=== PATIENT | male | born 1945 | race Caucasian/White ===

== ENCOUNTER 2017-01-19 18:37 | Inpatient (IN) ==
[2017-01-19] MEDS ORDERED: ASPIRIN PO STA (18:53)
[2017-01-19 19:05] LABS: MANUAL DIFF NEEDED? NO
[2017-01-19 19:14] LABS: BASO% 0.7 % (0.0-0.8); EOS# 0.08 X1000 (0.0-0.7); EOS% 0.6 % (0.0-10.0); HEMATOCRIT 35.1 % (42.0-52.0); HEMOGLOBIN 11.6 g/dL (14.0-18.0); IMM GRAN# 0.08 X1000 (0.0-0.04); IMM GRAN% 0.6 % (0.0-0.5); LYMPH# 1.56 X1000 (1.2-3.4); LYMPH% 12.1 % (20.5-51.1); MCH 36.5 PG (27-31); MCV 110.4 FL (81-99); MONO# 1.87 X1000 (0.11-0.59); MONO% 14.5 % (1.7-9.3); MPV 9.5 FL (7.4-10.4); NEUT% 71.5 % (42.2-75.2); PLT 328 X1000 (130-400); RBC 3.18 XMIL (4.7-6.1)
[2017-01-19] MEDS ORDERED: DUONEB (A & A) INH ONE (19:16)
[2017-01-19] MEDS ORDERED: ALBUTEROL NEB INH ONE (19:16)
[2017-01-19 19:29] LABS: BE 1.4 mmoll (-3.0-3.0); BLOOD TYPE ARTERIAL; DRAW SITE L RADIAL; METHB 1.5 % (0.0-1.5); O2(CT) 14.3 mL/dL (15.0-23.0); PCO2(98.6) 50 mmHg (35-45); PO2(98.6) 64 mmHg (60-100); SAMPLE BLOOD; SAO2 95.1 % (95.0-100.0); THB 11.2 g/dL (11.5-17.4); pH(98.6) 7.35 (7.35-7.45)
[2017-01-19 19:32] LABS: INR 1.09 (0.86-1.15); PROTIME 14.4 Seconds (12.1-15.5)
[2017-01-19 19:32] LABS: ALLEN TEST YES; MODALITY CANNULA
[2017-01-19 19:33] LABS: PTT PL 34.8 Seconds (22.6-43.9)
[2017-01-19 19:52] LABS: ALBUMIN 3.9 g/dL (3.5-5.0); CALCIUM 9.7 mg/dL (8.8-10.2); MAGNESIUM 2.4 mg/dL (1.5-2.7); POTASSIUM 4.5 mmol/L (3.5-5.1); TOTAL BILIRUBIN 0.3 mg/dL (0.20-1.00); TOTAL PROTEIN 7.4 g/dL (6.3-8.3)
--- NOTE | 2017-01-19 19:54 | Diag Imaging Result Doc PS360 ---
EXAM: HEAD W/O CONTRAST HISTORY: ams TECHNIQUE: Dose reduction protocol COMPARISON: None. FINDINGS: No parenchymal hemorrhage. No epidural or subdural hematoma. No subarachnoid hemorrhage. No mass identified on this noncontrasted exam. No hydrocephalus. Prominent mucus in the right maxillary sinus with wall thickening. IMPRESSION: 1.No hemorrhage 2.Mild atrophy with mild chronic ischemic changes 3.Chronic right maxillary sinusitis Electronically signed by Tio Dasilva 01/19/2017 7:51 PM
--- NOTE | 2017-01-19 20:03 | Diag Imaging Result Doc PS360 ---
EXAM: CHEST-2 VIEWS HISTORY: CP TECHNIQUE: COMPARISON: None. FINDINGS: The lungs are well expanded. The heart is not enlarged. Small patchy infiltrates in the mid lungs. No consolidation. No pleural effusions. No free air beneath the diaphragm. IMPRESSION: Small patchy mid lung infiltrates. Electronically signed by Tio Dasilva 01/19/2017 8:00 PM
[2017-01-19] MEDS ORDERED: SOLU-MEDROL IV ONE (20:08)
[2017-01-19] MEDS ORDERED: ROCEPHIN 1 GM/NS 1 GM/50 ML IVPB IV ONE (20:09)
[2017-01-19 20:12] LABS: CK INDEX 0.3 (0.0-2.5); CK-MB 17.17 ng/mL (0.0-5.0)
--- NOTE | 2017-01-19 20:13 | EKG Report ---
Test Performed on : 01/19/2017 7:02:45 PM Test Reason : CHEST PAIN Blood Pressure : / mmHG Vent. Rate : 075 BPM Atrial Rate : 075 BPM P-R Int : 170 ms QRS Dur : 080 ms QT Int : 382 ms P-R-T Axes : 074 055 052 degrees QTc Int : 426 ms Normal sinus rhythm. Normal ECG When compared with ECG of 28-FEB-2014 12:23, No significant change was found Unconfirmed Result
--- NOTE | 2017-01-19 20:28 | PROVIDER DOCUMENTATION ---
This chart was entered by Hailey Scott Scribe, acting as scribe for Gerson Ang MD. HPI-Respiratory General - General Chief Complaint: Shortness of Breath Stated Complaint: 02 STAT WAS 83 Time Seen by Provider: 01/19/17 18:52 Source: patient, family Allergies/Adverse Reactions: Patient Allergies Allergy/AdvReac Type Severity Reaction Status Date / Time No Known Allergies Allergy Verified 01/19/17 18:49 Home Medications: Home Medication List Medication Instructions Recorded Confirmed Last Taken Type Amlodipine Besylate/Benazepril 1 each PO DAILY 02/28/14 01/19/17 03/03/14 05:15 History [Lotrel 10/20 mg Capsule] Metformin [Glucophage] 500 mg PO BID CC 02/28/14 01/19/17 03/02/14 22:00 History Venlafaxine E.r. [Effexor Xr] 150 mg PO DAILY 02/28/14 01/19/17 03/03/14 05:15 History - History of Present Illness-Resp Nature of Presenting Problem: 71 Y/O M presents to the ER with the complain of SOB and weakness. Pt states that Pt fell from his bed this morning and was unable to get up for several hours and his was unable to lift him up. Pt states that he had productive cough for X2 days and was very disoriented and confused this morning and calling her daughter with different names. PT has hx of COPD and HTN. Pt denies any other symptoms. Onset/Duration: reports: this morning Timing: reports: still present Associated Symptoms: reports: cough, shortness of breath, wheezing, other ( weakness) Review of Systems - Adult - REVIEW OF SYSTEMS - ADULT Constitutional: denies: chills, fever Eyes: reports: no symptoms reported Ears, Nose, Mouth & Throat: reports: no symptoms reported Cardiovascular: denies: chest pain, palpitations Respiratory: reports: cough, shortness of breath, wheezing Gastrointestinal: denies: abdominal pain, nausea, vomiting Genitourinary: reports: no symptoms reported Musculoskeletal: reports: no symptoms reported Integumentary: reports: no symptoms reported Neurological: reports: no symptoms reported Psychiatric: reports: no symptoms reported Endocrine: reports: no symptoms reported Hematologic/Lymphatic: reports: no symptoms reported Allergic/Immunologic: reports: no symptoms reported All Other Systems: Reviewed and Negative Past History - Adult - PAST MEDICAL HISTORY-ADULT Review of Records: reports: Old Records Reviewed, Nursing Assessment Review Cardiovascular: reports: HTN Respiratory: reports: COPD Endocrine/Immune: reports: Diabetes - IMMUNIZATION STATUS Childhood Immunizations: See Nurse Assessment Flu Vaccine: See Nurse Assessment - SOCIAL HISTORY Smoking: other (tobacco) Provider spent 3-5 mins advising pt. on dangers of tobacco.: Discussed manners to quit use, and f/u contacts for add'l counseling. Physical Exam-General - PHYSICAL EXAM-ADULT Initial Vital Signs Reviewed: Yes - CONSTITUTIONAL General Appearance: appears well, alert - EYES Eyes: PERRL/EOMI, pink conjunctivae - NECK Neck: non-tender, full range of motion, supple - RESPIRATORY Respiratory: wheezing. negative: rhonchi - CARDIOVASCULAR Cardiovascular: normal peripheral pulses, regular rate, rhythm - GASTROINTESTINAL (ABDOMEN) Abdominal Exam: non tender, soft - MUSCULOSKELETAL Back Exam: no CVA tenderness, no vertebral tenderness - SKIN Integumentary: normal color, normal turgor, warm/dry - PSYCHIATRIC Psych/Mental Status: normal mood/affect, oriented x 3 Progress - PLAN OF CARE/RESULTS Progress/Plan/Lab Results: Vital Signs - 8 hr 01/19/17 18:45 01/19/17 19:37 Temperature 98.2 F Pulse Rate 82 76 Respiratory Rate 24 20 Blood Pressure 131/55 O2 Sat by Pulse Oximetry 81 L 93 L Laboratory Results - last 24 hr 01/19/17 01/19/17 01/19/17 19:01 19:01 19:01 WBC RBC Hgb Hct MCV MCH MCHC RDW Std Deviation Plt Count MPV Immature Gran % (Auto) Neut % (Auto) Lymph % (Auto) [place] % (Auto) Eos % (Auto) Baso % (Auto) Immature Gran # (Auto) Neut # (Auto) Lymph # (Auto) [place] # (Auto) Eos # (Auto) Baso # (Auto) PT INR APTT (Factor Assay) D-Dimer Specimen Type Sample Site pH pCO2 pO2 HCO3 Base Excess Oxyhemoglobin ABG O2 Sat (Calculated) ABG O2 Saturation ABG Carboxyhemoglobin ABG Methemoglobin Mauro Test A-a O2 Difference Total Hemoglobin Lactate Liter Flow Blood Gas Modality FiO2 % Sodium 142 Potassium 4.5 Chloride 100 Carbon Dioxide 24 L Anion Gap 17 BUN 35 H Creatinine 2.1 H Estimated GFR/1.73 m2 31 BUN/Creatinine Ratio 17 Glucose 104 Calculated Osmolality 291 Calcium 9.7 Magnesium 2.4 Total Bilirubin 0.30 AST 89 H ALT 28 Alkaline Phosphatase 100 Creatine Kinase 6246 H Creatine Kinase Index 0.3 CK-MB (CK-2) 17.17 H Troponin T < 0.010 Oid-G-Endjunnutam Pept 1168 H Total Protein 7.4 Albumin 3.9 Globulin 4.0 Albumin/Globulin Ratio 1.0 01/19/17 01/19/17 01/19/17 19:01 19:01 19:10 WBC 12.93 H RBC 3.18 L Hgb 11.6 L Hct 35.1 L MCV 110.4 H MCH 36.5 H MCHC 33.0 RDW Std Deviation 16.2 H Plt Count 328 MPV 9.5 Immature Gran % (Auto) 0.6 H Neut % (Auto) 71.5 Lymph % (Auto) 12.1 L [place] % (Auto) 14.5 H Eos % (Auto) 0.6 Baso % (Auto) 0.7 Immature Gran # (Auto) 0.08 H Neut # (Auto) 9.25 H Lymph # (Auto) 1.56 [place] # (Auto) 1.87 H Eos # (Auto) 0.08 Baso # (Auto) 0.09 PT 14.4 INR 1.09 APTT (Factor Assay) 34.8 D-Dimer 1.37 H Specimen Type ARTERIAL Sample Site L RADIAL pH 7.35 pCO2 50 H pO2 64 HCO3 25.9 Base Excess 1.4 Oxyhemoglobin 90.8 L ABG O2 Sat (Calculated) 14.3 L ABG O2 Saturation 95.1 ABG Carboxyhemoglobin 3.10 H ABG Methemoglobin 1.5 Mauro Test YES A-a O2 Difference 130.0 Total Hemoglobin 11.2 L Lactate 0.70 Liter Flow 4.0 Blood Gas Modality CANNULA FiO2 % 36.0 Sodium Potassium Chloride Carbon Dioxide Anion Gap BUN Creatinine Estimated GFR/1.73 m2 BUN/Creatinine Ratio Glucose Calculated Osmolality Calcium Magnesium Total Bilirubin AST ALT Alkaline Phosphatase Creatine Kinase Creatine Kinase Index CK-MB (CK-2) Troponin T Rnn-Q-Qnzhszjauyi Pept Total Protein Albumin Globulin Albumin/Globulin Ratio Orders Category Date Time Status Admit - [facility] Routine AdmDCTranf 01/19/17 20:25 Ordered Activity - Bed Rest with BRP ORDERED Care 01/19/17 20:25 Active Call Admitting on Arrival AT ADMISSION Care 01/19/17 20:26 Active Cardiac Monitoring DIRECTED Care 01/19/17 18:53 Active Oxygen Therapy- ED Nursing DIRECTED Care 01/19/17 18:53 Active Saline Loc NOW Care 01/19/17 18:53 Active Vital Signs Order ARRIVAL TO ROOM Care 01/19/17 20:25 Active Regular Diet Diet 01/19/17 20:26 Active CHEST-2 VIEWS [RAD] Stat Exams 01/19/17 18:53 Completed HEAD W/O CONTRAST [CT] Stat Exams 01/19/17 19:16 Completed ABG [RESP] Routine Lab 01/19/17 19:10 Completed CBC WITH ELECTRONIC DIFF [HEME] Stat Lab 01/19/17 19:01 Completed CK PROFILE [SP CHEM] Stat Lab 01/19/17 19:01 Completed COMPREHENSIVE METABOLIC PANEL [CHEM] Stat Lab 01/19/17 19:01 Com[address] D-DIMER PL [COAG] Stat Lab 01/19/17 19:01 Completed MAGNESIUM [CHEM] Stat Lab 01/19/17 19:01 Completed PRO B-NATRIURETIC PEPTIDE Stat Lab 01/19/17 19:01 Completed PR[address]IME WITH INR PL [COAG] Stat Lab 01/19/17 19:[address] [COAG] Stat Lab 01/19/17 19:01 Completed TROPONIN T Stat Lab 01/19/17 19:01 Completed Albuterol 2.5MG/Ipratrop 0.5MG [Duoneb (A & A)] Med 01/19/17 19:16 Discontinued 3 ml INH NOW ONE Albuterol 2.5MG/Ipratrop 0.5MG [Duoneb (A & A)] Med 01/19/17 23:30 Ordered 3 ml INH RTQ4H Albuterol [Albuterol Neb] Med 01/19/17 19:16 Discontinued 5 mg INH NOW ONE Aspirin Med 01/19/17 18:53 Discontinued 325 mg PO STAT STA CefTRIAXONE 1 GM/NS [Rocephin 1 gm/Ns] Med 01/19/17 20:09 Active 1 gm in 50 ml IV NOW Methylprednisolone Sod Succ [Solu-Medrol] Med 01/19/17 20:08 Discontinued 125 mg IV NOW ONE Aerosol Treatments Routine Oth 01/19/17 19:16 Active Aerosol Treatments Routine Oth 01/19/17 20:26 Active Aerosol Treatments Stat Oth 01/19/17 19:16 Active Aerosol Treatments Stat Oth 01/19/17 20:26 Active Oxygen Device Routine Oth 01/19/17 20:26 Active EKG [EKG] Stat Ther 01/19/17 18:53 Draft Transfer/Admit Order [TRANSFER] Routine Transfer 01/19/17 20:26 Ordered Result Diagrams: 01/19/17 19:01 01/19/17 19:01 - EKG 1 Time of EKG reading by physician:: 19:02 EKG Read and Signed by:: Gerson Ang EKG Interpretation (*Must complete 3 of following elements*): Normal Rate: 75 Rhythm: Normal Sinus Rhythm Comments: Normal ECG - XRAY 1 XRAY: Bilateral XRAY Study: Chest Impression: Abnormal XRAY Interpretation: COPD and Cardiomagley by Dr. Ang - CT/MRI 1 CT Study: Head Impression: See EMR Report (No Hemorrhage, Mild atropy with mild chronic ischemia, chronic right maxilary siniutisis by Radiologist) CT Results: No Hemorrhage, Mild atropy with mild chronic ischemia by radiologist Departure - Departure Time of Disposition Decision: 20:27 DIAGNOSIS: COPD exacerbation Disposition: ADMITTED INPATIENT 09 Certified Medical Emergency: Emergent Condition: Fair Referrals and Follow-Ups: Kassie Thomas [Primary Care Provider] - - Critical Care Note This patient required my direct & personal management of CC.: No This chart was documented by the indicated scribe, (Hailey Scott Scribe) and accurately reflects the services I performed and decisions made by me, Gerson Ang MD, as attested by the provider's signature.
[2017-01-19] MEDS ORDERED: NICODERM PATCH TD ONE (20:32)
[2017-01-19] MEDS ORDERED: ATIVAN IV ONE (20:32)
[2017-01-19] MEDS: NORCO-10 PO SCH (22:56)
[2017-01-19] MEDS: GLUCOPHAGE PO SCH (22:57)
[2017-01-19] MEDS: NEURONTIN PO SCH (22:57)
[2017-01-19] MEDS: EFFEXOR XR PO SCH (22:57)
[2017-01-19] MEDS: DESYREL PO SCH (22:57)
[2017-01-19] MEDS: DUONEB (A & A) INH SCH (23:14)
[2017-01-20] MEDS: DUONEB (A & A) INH SCH ×6 (03:30→23:30)
[2017-01-20] MEDS: NORVASC PO SCH (08:09)
[2017-01-20] MEDS: GLUCOPHAGE PO SCH (08:09)
[2017-01-20] MEDS: NORCO-10 PO SCH ×4 (08:10→22:54)
[2017-01-20] MEDS: NEURONTIN PO SCH ×3 (08:10→17:28)
[2017-01-20] MEDS ORDERED: EFFEXOR XR PO SCH (09:00)
[2017-01-20] MEDS ORDERED: LOTENSIN PO SCH (09:00)
[2017-01-20] MEDS: EFFEXOR XR PO SCH ×2 (10:14→22:54)
[2017-01-20] MEDS ORDERED: NICODERM PATCH TD PRN (11:57)
[2017-01-20] MEDS ORDERED: ATIVAN IV PRN (11:57)
[2017-01-20] MEDS: NS 1,000 ML IV SCH (13:01)
[2017-01-20] MEDS: LOVENOX SUBQ SCH (13:01)
[2017-01-20] MEDS: ATIVAN IV PRN ×3 (13:07→23:15)
[2017-01-20 13:24] LABS: CK INDEX 0.5 (0.0-2.5); CK-MB 17.44 ng/mL (0.0-5.0)
[2017-01-20 13:49] LABS: UR CREAT RANDOM 260.3 mg/dL (14-26); UR PROT RANDOM 59.1 mg/dL; UR SODIUM < 10 mmoll
--- NOTE | 2017-01-20 14:11 | HISTORY AND PHYSICAL ---
CHIEF COMPLAINT: Was acute episode of weakness I guess essentially. I do not have an ER note to look at but apparently he had an acute episode yesterday where he became weak and he could not get up. His saturations were low though 81% on room air. He was very disoriented. He does not remember exactly what happened. Reportedly he has not been feeling well for the last several days. ER workup I think revealed that he had what was felt to be a COPD exacerbation so he was admitted for further treatment. The rest of workup in the ER was unremarkable. I am not sure he still smokes. He denies any alcohol and gets very upset when this is discussed because he quit 20 years ago and he has not had a drink since and that is just simply not an issue. I believe he is retired. He is . He lives in [place]. SURGICAL HISTORY: He has had a bladder tumor repaired, rotator cuff repaired, femur fracture repaired, left elbow, right neck tumor, right knee, looks like left knee too and a right hip arthroplasty or pinning. PAST MEDICAL HISTORY: 1. Chronic obstructive pulmonary disease not on home oxygen. 2. Hypertension. 3. Diabetes. 4. Anxiety, depression. FAMILY HISTORY: Noncontributory but reviewed. SOCIAL HISTORY: As described. ALLERGIES: No known drug allergies. MEDICATIONS: He is on amlodipine, benazepril 10/20 daily, gabapentin 600 t.i.d., [place] p.r.n., metformin 500 b.i.d., trazodone 150 at night and Effexor 150 during the day and 75 at night. REVIEW OF SYSTEMS: Reviewed x10 systems but negative. PHYSICAL EXAMINATION: VITAL SIGNS: Blood pressure 118/49, heart rate 82, respiratory rate 18, temperature 98.8 degrees, 95% on 3 L. GENERAL: A well-developed male in no acute distress. HEENT: Head normocephalic, atraumatic. Pupils equal, round, reactive to light. Extraocular movements were intact. Ear, nose and throat exam he had moist mucous membranes. NECK: Supple. CARDIOVASCULAR EXAM: Regular rate and rhythm. No murmurs, gallops, or rubs. PULMONARY EXAM: Bilateral breath sounds. Clear to auscultation. GI: Soft, nontender, nondistended. Bowel sounds are positive. EXTREMITIES: No clubbing or cyanosis. LYMPHATICS: No peripheral edema. NEUROLOGICAL: Nonfocal. He is alert, oriented x3 now. MUSCULOSKELETAL: Was 5/5 in all 4 extremities. LABORATORY DATA: Normal CBC with a white count of 12 but MCV of 110 and hemoglobin and hematocrit of 11 and 35. D-dimer 1.37, pCO2 up a little bit of 50 but with a normal pH, BUN and creatinine of 35 and 2.1 but I am not sure if that is far off baseline for him. ASSESSMENT: A 71-year-old male with history of hypertension, diabetes, chronic obstructive pulmonary disease presenting with an acute weakness episode. PROBLEM LIST: 1. Acute kidney injury it looks like. I am going to hold his Lotensin and we will hydrate him at least for 24 hours. I am not sure if this episode may be related to some kidney issues. We are going to follow that, check urine electrolytes and I will probably put in for renal ultrasound tomorrow. He has had bladder cancer so it may be related to that. We will continue to follow. 2. Chronic obstructive pulmonary disease exacerbation. I think is very mild. He is on antibiotics and breathing treatments. I am going to hold on any steroids at this point. 3. Diabetes. We will check A1c, follow with sliding scale. Obviously we have to hold his metformin because of his renal insufficiency and follow closely. 4. Hypertension appears to be stable. We will continue to follow. Apparently he has been having some intermittent chest pains and he was due for cardiac workup. Because we are going to pursue a V/Q scan because of the hypoxia and elevated D-dimer this will probably have to be completed as an outpatient. cc: MONCHO Woodson
[2017-01-20] MEDS: HUMULIN R SUBQ SCH ×2 (15:45→22:56)
[2017-01-20] MEDS: DESYREL PO SCH (22:54)
[2017-01-21] MEDS: NS 1,000 ML IV SCH ×3 (00:38→22:48)
[2017-01-21] MEDS: DUONEB (A & A) INH SCH ×6 (04:33→22:51)
--- NOTE | 2017-01-21 06:14 | EKG Report ---
Test Performed on : 01/21/2017 05:54:04 AM Test Reason : cp Blood Pressure : / mmHG Vent. Rate : 073 BPM Atrial Rate : 073 BPM P-R Int : 190 ms QRS Dur : 082 ms QT Int : 374 ms P-R-T Axes : 069 029 040 degrees QTc Int : 412 ms Normal sinus rhythm. Normal ECG When compared with ECG of 19-JAN-2017 19:02, No significant change was found Confirmed by Aj Parnell MD ([id number]) on 01/22/2017 9:59:08 PM
[2017-01-21] MEDS: HUMULIN R SUBQ SCH (06:18)
[2017-01-21 06:58] LABS: HEMATOCRIT 31.8 % (42.0-52.0); MCH 34.8 PG (27-31); MCHC 31.4 g/dL (33-37); MCV 110.8 FL (81-99); MPV 9.9 FL (7.4-10.4); RBC 2.87 XMIL (4.7-6.1)
[2017-01-21 07:05] LABS: HEMOGLOBIN A1C 5.4 % (4.8-6.0)
[2017-01-21 07:07] LABS: CALCIUM 9.5 mg/dL (8.8-10.2); POTASSIUM 4.3 mmol/L (3.5-5.1)
[2017-01-21] MEDS: EFFEXOR XR PO SCH ×2 (08:23→20:24)
[2017-01-21] MEDS: NEURONTIN PO SCH ×3 (08:23→18:55)
[2017-01-21] MEDS: ATIVAN IV PRN ×2 (08:24→20:25)
[2017-01-21] MEDS: NORVASC PO SCH (08:24)
[2017-01-21] MEDS: NORCO-10 PO SCH ×4 (08:24→20:24)
--- NOTE | 2017-01-21 09:56 | Diag Imaging Result Doc PS360 ---
EXAM: CHEST-2 VIEWS HISTORY: ACCOMPANY VQ SCAN TECHNIQUE: COMPARISON: 01/19/2017 FINDINGS: The lungs are well expanded. The heart is not enlarged. The vessels are not distended. Interval clearing of the infiltrates in the mid lungs. Small area of increased density in the left apex persists No pleural effusions. IMPRESSION: Overall interval improvement. Electronically signed by Tio Dasilva 01/21/2017 9:54 AM
--- NOTE | 2017-01-21 10:08 | Diag Imaging Result Doc PS360 ---
EXAM: LUNG SCAN / VQ HISTORY: elevated ddimer, dyspnea TECHNIQUE: 5.9 mCi MAA administered for the perfusion images. 40.3 mCi DTPA given for the ventilation images. COMPARISON: A chest x-ray 01/21/2017 FINDINGS: There are no wedge shaped perfusion defects. No ventilation/perfusion mismatches. IMPRESSION: Low probability for pulmonary embolus. Electronically signed by Tio Dasilva 01/21/2017 10:05 AM
--- NOTE | 2017-01-21 10:15 | Diag Imaging Result Doc PS360 ---
EXAM: US RENAL 2 (RETROPER) COMPLETE HISTORY: juani/arf TECHNIQUE: COMPARISON: None. FINDINGS: The right kidney measures 9.8 x 5.0 x 4.1 cm. Normal renal echogenicity and cortical thickness. No renal stone or hydronephrosis. No solid mass. There is a 2.1 cm cyst in the mid kidney. The urinary bladder is moderately distended and appears normal. Left kidney measures 10.3 x 4.8 x 5.3 cm. Normal renal echogenicity and cortical thickness. There are several scattered renal cysts. The largest arises from the lower pole measuring 3.4 cm. No solid renal mass. IMPRESSION: Scattered renal cysts, otherwise normal renal ultrasound. Electronically signed by Tio Dasilva 01/21/2017 10:13 AM
[2017-01-21] MEDS: HUMULIN R (PARKWAY) SUBQ SCH ×4 (12:07→22:38)
[2017-01-21] MEDS: LOVENOX SUBQ SCH (14:22)
--- NOTE | 2017-01-21 14:24 | Diag Imaging Result Doc PS360 ---
EXAM: ABDOMEN/PELVIS W/O CONTRAST HISTORY: RLQ pain TECHNIQUE: COMPARISON: 01/25/2014 FINDINGS: The gallbladder is contracted. Normal spleen and adrenal glands. Normal noncontrasted liver and pancreas. There are scattered hypodense renal lesions believed to base cysts. The largest arises from the left lower pole measuring 3 cm. No renal stones. No hydronephrosis. Moderate atherosclerosis. No aneurysmal dilatation to the aorta. No bowel obstruction. No inflammation about the cecum. No abscess. There are scattered distal diverticula. The urinary bladder is moderately distended. Prostate is not enlarged. No free air. IMPRESSION: 1.The appendix is not identified. No inflammation about the cecum. No abscess. 2.No renal stones or hydronephrosis. There are scattered renal cysts. 3.Postsurgical changes lower lumbar spine as well as prior placement of the right hip 4.Diverticulosis Electronically signed by Tio Dasilva 01/21/2017 2:22 PM
--- NOTE | 2017-01-21 15:08 | PROGRESS NOTE ---
DATE: 01/21/2017 PRIMARY CARE PHYSICIAN: MONCHO Woodson. SUBJECTIVE: The patient is complaining of some right lower quadrant pain. He states that it hurts with movement. It ceases when he is still. He denies any chest pain, nausea, vomiting, diarrhea, constipation. No fever or chills. OBJECTIVE: Vital Signs: Blood pressure is 129/58 with a heart rate of 90, respirations are 16, temperature is 98.3 degrees oral, with oxygen saturations of 98% to 100% on 2 to 3 L nasal cannula. Cardiovascular: Regular rate and rhythm. S1, S2 appreciated. Pulmonary: Breath sounds are clear. No increased work of breathing noted. Gastrointestinal: Soft, nontender, except he does have some tenderness to the right lower quadrant to palpation and movement, with bowel sounds positive in all 4 quadrants. Extremities: No clubbing, cyanosis, or edema. Neurologic: He is alert and oriented. IMAGING AND LABORATORY DATA: WBC is 11.45 with a hemoglobin of 10, hematocrit 31.8, and platelets of 349,000. Sodium is 140, potassium 4.3, BUN 62, creatinine 2.2 with a glucose of 142. Chest x- ray revealed interval clearing with no acute processes. Renal ultrasound revealed no stones, no hydronephrosis, with scattered renal cysts, otherwise normal. CT of the abdomen and pelvis revealed appendix is not identified, no inflammation about the cecum, no abscess , no renal stones or hydronephrosis, there are scattered renal cysts, diverticulosis urinary bladder is moderately distended with the prostate not enlarged bladder. ASSESSMENT AND PLAN: 1. Acute kidney injury. Will continue to hold his Lotensin. Will continue gentle hydration, and follow his labs. He does have a distended bladder with no hydronephrosis. We will scan his bladder. 2. Chronic obstructive pulmonary disease exacerbation. This is mild. He does state that he is getting better. Will continue with his current treatment. 3. Diabetes mellitus. His hemoglobin A1c is 5.4. Will continue to hold his metformin. Continue with pattern blood glucose with sliding scale insulin. 4. Hypertension. Will continue with his current treatment. 5. Right lower quadrant pain. This pain is present on movement, particularly movement of his right leg. His bladder is nonpalpable. There are no acute processes on CT. Will continue to follow and give pain medications. Dictated by MONCHO Norton for Aleksey Tejada MD cc: MONCHO Norton MD pt examined, agree with above APENOT MTDD
[2017-01-21] MEDS: FLOMAX PO SCH ×2 (15:21→22:49)
[2017-01-21 18:15] LABS: URINE CULTURE PL NEEDED? NO; URINE SOURCE CLEAN CATCH
[2017-01-21 18:17] LABS: BILIRUBIN URINE NEGATIVE (NEGATIVE); CLARITY CLEAR (CLEAR); COLOR YELLOW; GLUCOSE URINE NEGATIVE (NEGATIVE); URINE CAST GRANULAR PRESENT /LPF; URINE EPITHELIAL CELLS <10 /HPF (<10); URINE RBC <10 /HPF (<10); URINE WBC <10 /HPF (<10)
[2017-01-21 18:18] LABS: BLOOD URINE NEGATIVE (NEGATIVE); LEUKOCYTES URINE NEGATIVE (NEGATIVE); NITRITE URINE NEGATIVE (NEGATIVE); PROTEIN URINE NEGATIVE (NEGATIVE); UROBILINOGEN URINE NORMAL
[2017-01-21] MEDS: DESYREL PO SCH (20:24)
[2017-01-22] MEDS: DUONEB (A & A) INH SCH ×6 (03:26→22:41)
[2017-01-22] MEDS: HUMULIN R (PARKWAY) SUBQ SCH ×4 (06:06→21:29)
[2017-01-22 07:02] LABS: HEMATOCRIT 34.6 % (42.0-52.0); HEMOGLOBIN 10.8 g/dL (14.0-18.0); MCHC 31.2 g/dL (33-37); MPV 9.6 FL (7.4-10.4); RBC 3.09 XMIL (4.7-6.1)
--- NOTE | 2017-01-22 07:24 | Diag Imaging Result Doc PS360 ---
EXAM: CHEST-2 VIEWS HISTORY: hypoxia TECHNIQUE: COMPARISON: 01/21/2017 FINDINGS: The lungs are hyperexpanded. The heart is not enlarged. The vessels are not distended. There are no infiltrates. No pleural effusions. IMPRESSION: Stable chest Electronically signed by Tio Dasilva 01/22/2017 7:22 AM
[2017-01-22 08:03] LABS: AGAP 10; ALBUMIN 3.7 g/dL (3.5-5.0); ALKALINE PHOSPHATASE 103 U/L (32-122); BUN 47 mg/dL (8-22); CALCIUM 9.4 mg/dL (8.8-10.2); CHLORIDE 107 mmol/L (98-107); COSMO 299; GOT 39 U/L (10-34); GPT 37 U/L (10-44); POTASSIUM 5.3 mmol/L (3.5-5.1); SODIUM 143 mmol/L (136-145); TCO2 27 mmol/L (25-35); TOTAL BILIRUBIN < 0.15 mg/dL (0.20-1.00); TOTAL PROTEIN 6.8 g/dL (6.3-8.3)
[2017-01-22] MEDS: NORCO-10 PO SCH (08:25)
[2017-01-22] MEDS: NEURONTIN PO SCH ×3 (08:25→15:59)
[2017-01-22] MEDS: EFFEXOR XR PO SCH (08:25)
[2017-01-22] MEDS: NORVASC PO SCH (08:25)
[2017-01-22] MEDS: NS 1,000 ML IV SCH ×2 (08:28→21:34)
[2017-01-22 12:11] LABS: BLOOD TYPE ARTERIAL; DRAW SITE R RADIAL; METHB 1.1 % (0.0-1.5); O2(CT) 15.5 mL/dL (15.0-23.0); PO2(98.6) 64 mmHg (60-100); SAMPLE BLOOD; SAO2 95.2 % (95.0-100.0); THB 11.9 g/dL (11.5-17.4); pH(98.6) 7.32 (7.35-7.45)
[2017-01-22 12:13] LABS: PCO2(98.6) 59 mmHg (35-45)
[2017-01-22 12:14] LABS: ALLEN TEST YES; MODALITY CANNULA
[2017-01-22] MEDS ORDERED: NORCO-10 PO PRN (12:29)
[2017-01-22 12:32] LABS: UR AMPHETAMINES QUAL NONE DETECTED (NONE DETECT); UR BARBITUATES QUAL NONE DETECTED (NONE DETECT); UR BENZODIAZEPIN QUAL NONE DETECTED (NONE DETECT); UR CANNABINOIDS QUAL NONE DETECTED (NONE DETECT); UR COCAINE QUAL NONE DETECTED (NONE DETECT); UR MDMA QUAL NONE DETECTED (NONE DETECT); UR METHADONE QUAL NONE DETECTED (NONE DETECT); UR METHAMPHETAMINE QUAL NONE DETECTED (NONE DETECT); UR OPIATES QUAL PRESUMPTIVE POSITIVE (NONE DETECT); UR OXYCODONE QUAL NONE DETECTED (NONE DETECT); UR PCP QUAL PRESUMPTIVE POSITIVE (NONE DETECT); UR TCA QUAL NONE DETECTED (NONE DETECT)
--- NOTE | 2017-01-22 13:04 | PROGRESS NOTE ---
DATE: 01/22/2017 SUBJECTIVE: The patient much more confused and lethargic today. Apparently he was a little worse even yesterday, just has had kind of a steady decline as far as his mental status. PHYSICAL EXAMINATION: Vital signs: Blood pressure 132/90, heart rate 76, respiratory 18, temp 98.5 degrees, 96% on 2 L. Cardiovascular: Regular rate and rhythm. Pulmonary: Bilateral breath sounds with rhonchi and wheezing. GI: Soft, nontender, nondistended. Bowel sounds are positive. Extremities: No clubbing or cyanosis. Lymphatics: No peripheral edema. Neurological: Nonfocal. LABORATORY DATA: Really unremarkable except clinically his creatinine is down at 1.7 so that is an improvement. White count is normal. Hemoglobin and hematocrit is stable. PROBLEM LIST: 1. Encephalopathy. Unclear at this point what the etiology is. Head CT was negative on admission. He did have this acute neurological episode when he came in with hypoxia. We ruled out PE. There is no pneumonia. He had a CT scan yesterday because right lower quadrant pain but that was negative. I am going to progress with an MRI. If that is not revealing then we will pursue Neurology consultation. He is somewhat hypercapnic so I will initiate BiPAP and follow. 2. Chronic obstructive pulmonary disease exacerbation. Seems to have gotten worse. We will continue to monitor. He is on breathing treatments. I will add Rocephin. We may consider adding steroids. He has not been on steroids this time but again he did not have significant wheezing. We are holding all sedating medications just to ensure he stabilizes. 3. Acute kidney injury. We are continuing fluids and we will follow closely. DISPOSITION: Pending his clinical course. cc: Aleksey Tejada MD
[2017-01-22] MEDS ORDERED: ROCEPHIN 1 GM/NS 1 GM/50 ML IVPB IV SCH (13:39)
[2017-01-22] MEDS ORDERED: PROTONIX IV SCH (13:39)
[2017-01-22] MEDS ORDERED: SODIUM CHLORIDE 0.9% INJ SCH (13:39)
[2017-01-22] MEDS ORDERED: LOVENOX SUBQ SCH (15:00)
--- NOTE | 2017-01-22 16:14 | Diag Imaging Result Doc PS360 ---
EXAM: MRI BRAIN W/O CONTRAST HISTORY: ams TECHNIQUE: Multisequence, multiplanar images were obtained without contrast as per standard protocol. COMPARISON: CT brain 01/22/2017 FINDINGS: There is image degradation secondary to patient motion. Diffusion images show no evidence for acute infarct. There is mild to moderate cerebral atrophy. There are few scattered deep white matter T2 hyperintensities which are nonspecific in appearance but likely related to microvascular disease. No hemorrhage or extra-axial collection is identified. There is a large air-fluid level within the right maxillary sinus. IMPRESSION: Findings consistent with atrophy and microvascular disease. Acute right maxillary sinusitis. Electronically signed by Denise Luong 01/22/2017 4:12 PM
--- NOTE | 2017-01-22 16:22 | Diag Imaging Result Doc PS360 ---
EXAM: HEAD W/O CONTRAST HISTORY: encephalopathy TECHNIQUE: Noncontrasted images as per standard protocol. COMPARISON: 01/19/2017 FINDINGS: There are no extra-axial collections. There is no evidence for acute infarct or hemorrhage. There is no midline shift or mass effect. There is no hydrocephalus . Images are degraded by patient motion. There is right maxillary sinusitis. IMPRESSION: Limited evaluation secondary to patient motion. Right maxillary sinusitis. No acute intracranial abnormality is appreciated. Electronically signed by Denise Luong 01/22/2017 4:20 PM
[2017-01-23] MEDS: DUONEB (A & A) INH SCH ×3 (03:33→12:22)
[2017-01-23] MEDS: HUMULIN R DOSE (PARKWAY) SUBQ SCH ×2 (06:46→11:00)
[2017-01-23 07:14] LABS: HEMATOCRIT 28.9 % (42.0-52.0); MCH 34.6 PG (27-31); MCHC 31.1 g/dL (33-37); MCV 111.2 FL (81-99); MPV 9.6 FL (7.4-10.4); RBC 2.6 XMIL (4.7-6.1)
[2017-01-23 07:26] LABS: MAGNESIUM 1.9 mg/dL (1.5-2.7); POTASSIUM 4.8 mmol/L (3.5-5.1)
[2017-01-23] MEDS: NEURONTIN PO SCH (10:58)
[2017-01-23] MEDS: NORVASC PO SCH (10:59)
[2017-01-23] MEDS: EFFEXOR XR PO SCH (10:59)
[2017-01-23] MEDS ORDERED: NORCO-7.5 PO PRN (11:13)
[2017-01-23] MEDS ORDERED: MORPHINE IV ONE (11:13)
[2017-01-23] MEDS ORDERED: LASIX IV ONE (11:14)
--- NOTE | 2017-01-23 12:29 | Extremity Venous Study ---
Venous U/S Bilateral Legs - 01/23/2017 INDICATION: swelling, elevated ddimer TECHNIQUE: Bilateral lower extremity venous Doppler ultrasound COMPARISON: None FINDINGS: The veins of the lower extremities are fully compressible. There is normal color and pulse wave Doppler signal. IMPRESSION: Negative exam. Electronically signed by Ry Kay 01/23/2017 12:27 PM
[2017-01-23 14:48] VITALS: BP 168/70
--- NOTE | 2017-01-23 21:21 | DISCHARGE SUMMARY ---
ADMISSION DATE: 01/19/2017 DISCHARGE DATE: 01/23/2017 DISCHARGE DIAGNOSES: 1. Chronic obstructive pulmonary disease exacerbation. 2. Acute kidney injury. 3. Diabetes noninsulin dependent. 4. Hypertension. DISCHARGE DIAGNOSES: 1. Acute kidney injury possibly associated with diabetic nephropathy. 2. Chronic obstructive pulmonary disease exacerbation. 3. Acute hypoxic respiratory failure. 4. Acute respiratory failure. 5. Encephalopathy associated with medications and likely hypercapnia associated with his chronic obstructive pulmonary disease. 6. Likely obstructive sleep apnea. 7. Hypertension. HOSPITAL COURSE: Briefly, this is a gentleman who came in with confusion. His saturations were initially 81% on room air. He does have known COPD. He reportedly was not a smoker but there is indication that he is still smoking. In any case he was placed on breathing treatments and followed closely. We pursued renal ultrasound because of his kidney dysfunction. It was unremarkable except for some bladder distention It did slowly improve with hydration. On the he was complaining of some right lower quadrant pain. Chest x-ray really was not very impressive. He had some increased density in the left apex. His CT scan did not show any abdominal pathology. We could not use IV contrast because of his kidney dysfunction. I think his baseline creatinine is usually around 1.5 but here it was 2.2, 2.3. Kidney function improved. Breathing function improved. He got more confused on the . We ordered a head CT. We had one on admission which was negative and even an MRI showed no evidence of stroke. ABG showed mild elevation of pCO2. pH was down to 7.32 so he was placed on BiPAP and he clinically improved the following day. The patient was very adamant about getting discharged just because he had a family wedding to go to the following day. Lower extremity Doppler was negative for DVT. A V/Q scan was also negative for PE. Clinically he improved. He was still having a little bit of wheezing but overall improved. He was still requiring oxygen and was evaluated for home oxygen and did qualify, 87% saturating on room air. I think that is likely the mechanism of his confusion and his weakness episode when he came in was just hypoxia associated with his COPD and a little bit of renal insufficiency. Creatinine is 1.2 at the time of discharge and he was set up with home oxygen. I do also think he likely has obstructive sleep apnea. I think that is being evaluated but I would recommend an outpatient sleep study because I anticipate he may need CPAP. Urine electrolytes were more consistent with dehydration. Urine sodium was less than 10, urine creatinine was 260. Again he improved significantly with hydration. At time of discharge he was stable. DISCHARGE MEDICATIONS: Basically his home medications in addition to 1. DuoNeb q. 6 hours, 2. Amlodipine/benazepril 06/13. 3. Cefdinir 300 b.i.d. for 7 days. 4. Gabapentin 600 t.i.d. 5. [place] p.r.n. 6. Glucophage 500 b.i.d. 7. Trazodone 150 at bedtime. 8. Effexor XR 150 daily. 9. Effexor XR 75 at night. DISCHARGE CONDITION: Stable. FOLLOWUP: 1. He will need outpatient sleep study. 2. He was already due for an echocardiogram and stress test. This will be completed as an outpatient. 3. Follow up with his PCP, Kassie Thomas, in 1 week. 4. He was told to return for worsening shortness of breath or cough. DISCHARGE TIME: 32 minutes. cc: Aleksey Tejada MD
== END 2017-01-23 15:37 | disposition home health service (06) ==
LOC: P.ED 18:37 → P.MEDSURG 21:12 → P.ICU 01-22 13:32
PROVIDERS: ATTEND Internal Medicine

== ENCOUNTER 2019-08-24 04:11 | Inpatient (IN) ==
[2019-08-24] MEDS ORDERED: DUONEB (A & A) INH ONE (04:51)
[2019-08-24] MEDS ORDERED: MAGNESIUM SULFATE 2 GM/S.W.I. 2 GM/50 ML IVPB IV ONE (04:52)
[2019-08-24] MEDS ORDERED: SOLU-MEDROL IV ONE (04:52)
--- NOTE | 2019-08-24 04:57 | PROVIDER DOCUMENTATION ---
HPI-Respiratory General - General Chief Complaint: Shortness of Breath Stated Complaint: SOB/COPD Time Seen by Provider: 08/24/19 04:51 Allergies/Adverse Reactions: Patient Allergies Allergy/AdvReac Type Severity Reaction Status Date / Time No Known Allergies Allergy Verified 08/24/19 05:40 Home Medications: Home Medication List Medication Instructions Recorded Confirmed Last Taken Type Amlodipine Besylate/Benazepril 1 each PO DAILY 02/28/14 08/24/19 03/03/14 05:15 History [Lotrel 10/20 mg Capsule] Metformin [Glucophage] 500 mg PO BID CC 02/28/14 08/24/19 03/02/14 22:00 History Venlafaxine E.r. [Effexor Xr] 150 mg PO DAILY 02/28/14 08/24/19 03/03/14 05:15 History Gabapentin 600 mg PO TID 01/19/17 08/24/19 Unknown History Hydrocodone/Acetaminophen [[place] 1 tab PO 4XDAY 01/19/17 08/24/19 Unknown History 10-325 Tablet] Trazodone HCl 150 mg PO QHS 01/19/17 08/24/19 Unknown History Venlafaxine HCl [Venlafaxine HCl 75 mg PO QHS 01/19/17 08/24/19 01/18/17 History ER] Albuterol 2.5MG/Ipratrop 0.5MG 3 ml INH RTQ6H #120 neb 01/23/17 08/24/19 Unknown Rx [Duoneb] Nebulizer [Aeroneb Go Nebuliser] 1 each MC TID #1 each 01/23/17 08/24/19 Unknown Rx - History of Present Illness-Resp Nature of Presenting Problem: patient is a 73 year old white male with history of chronic back pain, HTN, tobacco abuse, and severe COPD requiring home nebs and oxygen who presents with increasing sob, wheezing for past 2 days. Patient has run out of his nebulizer medication and has stopped using home oxygen. Denies chest pain,fever, productive cough, or history of CAD. Followed by Dr Nunn. Review of Systems - Adult - REVIEW OF SYSTEMS - ADULT Constitutional: denies: chills, fever Eyes: reports: no symptoms reported Ears, Nose, Mouth & Throat: reports: no symptoms reported Cardiovascular: denies: chest pain Respiratory: reports: see HPI, cough, shortness of breath, wheezing Gastrointestinal: reports: no symptoms reported Genitourinary: reports: no symptoms reported Musculoskeletal: reports: back pain (chronic) Integumentary: reports: no symptoms reported Neurological: reports: no symptoms reported Psychiatric: reports: anxiety Endocrine: reports: no symptoms reported Hematologic/Lymphatic: reports: no symptoms reported Allergic/Immunologic: reports: no symptoms reported All Other Systems: Reviewed and Negative Past History - Adult - PAST MEDICAL HISTORY-ADULT Review of Records: reports: Old Records Reviewed, Nursing Assessment Review, Medications Reviewed, Social history reviewed & non-contributory. Major Childhood Illnesses: reports: denies history Cardiovascular: reports: HTN Respiratory: reports: COPD Gastrointestinal: reports: denies history Genitourinary: reports: denies history Musculoskeletal: reports: arthritis, intervertebral disc disease Neurological: reports: denies history Psychiatric: reports: denies history Endocrine/Immune: reports: Diabetes - PRIOR SURGERIES/PROCEDURES Surgical/Procedure History: reports: orthopedic (extremity) (hip replacement, femur fx), other (spine surgeries) - IMMUNIZATION STATUS Childhood Immunizations: See Nurse Assessment Flu Vaccine: See Nurse Assessment - FAMILY HISTORY Family History: reviewed, not pertinent - SOCIAL HISTORY Smoking: greater than 1 pack/day Substance Use: denies Alcohol Use Frequency: occasionally Living Situation: family Physical Exam-General - CONSTITUTIONAL General Appearance: alert, obese, other (anxious, nondiaphoretic) - EYES Eyes: PERRL/EOMI, other (clear) - HEAD, EARS, NOSE, MOUTH & THROAT HENMT: moist mucous membranes, TMs normal, pharynx normal - NECK Neck: supple - RESPIRATORY Respiratory: no accessory muscle use, decreased breath sounds, rhonchi, wheezing (diffuse) - CARDIOVASCULAR Cardiovascular: regular rate, rhythm - GASTROINTESTINAL (ABDOMEN) Abdominal Exam: non tender, soft - LYMPHATIC Lymphatic: no adenopathy - MUSCULOSKELETAL Back Exam: no CVA tenderness Extremity: normal range of motion, non-tender Peripheral Pulses: radial (R): 2+, radial (L): 2+ - SKIN Integumentary: normal turgor, warm/dry - NEUROLOGIC Neurologic: grossly normal - PSYCHIATRIC Psych/Mental Status: oriented x 3, anxious Progress - PLAN OF CARE/RESULTS Progress/Plan/Lab Results: Vital Signs - 8 hr 08/24/19 04:15 08/24/19 04:35 08/24/19 04:46 Temperature 98.4 F Pulse Rate 67 68 Respiratory Rate 20 Blood Pressure 155/81 164/64 179/89 O2 Sat by Pulse Oximetry 92 L 95 97 08/24/19 05:01 08/24/19 05:16 08/24/19 05:31 Temperature Pulse Rate 65 66 64 Respiratory Rate Blood Pressure 168/79 141/82 157/75 O2 Sat by Pulse Oximetry 96 96 95 08/24/19 05:38 08/24/19 05:46 08/24/19 06:01 Temperature Pulse Rate 61 64 65 Respiratory Rate 15 Blood Pressure 164/77 138/62 O2 Sat by Pulse Oximetry 95 94 L 93 L Laboratory Results - last 24 hr 08/24/19 08/24/19 08/24/19 04:54 04:54 04:57 WBC Cancelled RBC Cancelled Hgb Cancelled Hct Cancelled MCV Cancelled MCH Cancelled MCHC Cancelled RDW Std Deviation Cancelled Plt Count Cancelled MPV Cancelled Immature Gran % (Auto) Cancelled Neut % (Auto) Cancelled Lymph % (Auto) Cancelled [place] % (Auto) Cancelled Eos % (Auto) Cancelled Baso % (Auto) Cancelled Immature Gran # (Auto) Cancelled Neut # (Auto) Cancelled Lymph # (Auto) Cancelled [place] # (Auto) Cancelled Eos # (Auto) Cancelled Baso # (Auto) Cancelled Corrected WBC (Man) Cancelled D-Dimer, Quantitative Specimen Type Sample Site pH pCO2 pO2 HCO3 Base Excess Oxyhemoglobin ABG O2 Sat (Calculated) ABG O2 Saturation ABG Carboxyhemoglobin ABG Methemoglobin Mauro Test A-a O2 Difference Total Hemoglobin Lactate Liter Flow Blood Gas Modality FiO2 % Sodium 141 Potassium 4.7 Chloride 101 Carbon Dioxide 25 Anion Gap 15 BUN 22 Creatinine 1.4 H Estimated GFR/1.73 m2 49 BUN/Creatinine Ratio 16 Glucose 114 H Calculated Osmolality 285 Calcium 9.1 Magnesium 2.1 Total Bilirubin 0.37 AST 11 ALT 8 L Alkaline Phosphatase 103 Creatine Kinase Troponin T Gug-Y-Ihjpvemkirl Pept Total Protein 6.4 Albumin 4.0 Globulin 2.4 Albumin/Globulin Ratio 1.7 08/24/19 08/24/19 08/24/19 04:57 04:57 04:57 WBC RBC Hgb Hct MCV MCH MCHC RDW Std Deviation Plt Count MPV Immature Gran % (Auto) Neut % (Auto) Lymph % (Auto) [place] % (Auto) Eos % (Auto) Baso % (Auto) Immature Gran # (Auto) Neut # (Auto) Lymph # (Auto) [place] # (Auto) Eos # (Auto) Baso # (Auto) Corrected WBC (Man) D-Dimer, Quantitative Specimen Type Sample Site pH pCO2 pO2 HCO3 Base Excess Oxyhemoglobin ABG O2 Sat (Calculated) ABG O2 Saturation ABG Carboxyhemoglobin ABG Methemoglobin Mauro Test A-a O2 Difference Total Hemoglobin Lactate Liter Flow Blood Gas Modality FiO2 % Sodium Potassium Chloride Carbon Dioxide Anion Gap BUN Creatinine Estimated GFR/1.73 m2 BUN/Creatinine Ratio Glucose Calculated Osmolality Calcium Magnesium Total Bilirubin AST ALT Alkaline Phosphatase Creatine Kinase 55 Troponin T < 0.010 Koa-C-Wwcxbjhdogp Pept 828 H Total Protein Albumin Globulin Albumin/Globulin Ratio 08/24/19 08/24/19 08/24/19 05:06 05:06 05:15 WBC 6.06 RBC 3.11 L Hgb 11.4 L Hct 35.4 L MCV 113.8 H MCH 36.7 H MCHC 32.2 L RDW Std Deviation 16.6 H Plt Count 286 MPV 9.8 Immature Gran % (Auto) Neut % (Auto) 56.4 Lymph % (Auto) 22.8 [place] % (Auto) 16.7 H Eos % (Auto) 3.3 Baso % (Auto) 0.8 Immature Gran # (Auto) Neut # (Auto) 3.42 Lymph # (Auto) 1.38 [place] # (Auto) 1.01 H Eos # (Auto) 0.20 Baso # (Auto) 0.05 Corrected WBC (Man) D-Dimer, Quantitative 0.48 Specimen Type ARTERIAL Sample Site R BRACHIAL pH 7.41 pCO2 46 H pO2 77 HCO3 27.9 H Base Excess 3.9 H Oxyhemoglobin 92.5 L ABG O2 Sat (Calculated) 14.5 L ABG O2 Saturation 98.7 ABG Carboxyhemoglobin 6.20 H* ABG Methemoglobin 0.1 Mauro Test YES A-a O2 Difference 65.0 Total Hemoglobin 11.1 L Lactate 0.60 Liter Flow 2.0 Blood Gas Modality CANNULA FiO2 % 28.0 Sodium Potassium Chloride Carbon Dioxide Anion Gap BUN Creatinine Estimated GFR/1.73 m2 BUN/Creatinine Ratio Glucose Calculated Osmolality Calcium Magnesium Total Bilirubin AST ALT Alkaline Phosphatase Creatine Kinase Troponin T Uhp-C-Lgnvmysgytj Pept Total Protein Albumin Globulin Albumin/Globulin Ratio Orders Category Date Time Status Saline Loc NOW Care 08/24/19 04:51 Active CHEST-PORTABLE [RAD] Stat Exams 08/24/19 04:52 Taken ABG [RESP] Routine Lab 08/24/19 05:15 Completed BLOOD CULTURE [BLDCUL] Stat Lab 08/24/19 06:41 Uncollected BNP [PRO B-NATRIURETIC PEPTIDE] Stat Lab 08/24/19 04:57 Completed CBC WITH ELECTRONIC DIFF [HEME] Stat Lab 08/24/19 05:06 Completed CK PROFILE [SP CHEM] Stat Lab 08/24/19 04:57 Completed CMP [COMPREHENSIVE METABOLIC PANEL] [CHEM] Stat Lab 08/24/19 04:54 Completed D-DIMER [COAG] Stat Lab 08/24/19 05:06 Completed MAGNESIUM [CHEM] Stat Lab 08/24/19 04:54 Completed TROPONIN T Stat Lab 08/24/19 04:57 Completed Albuterol 2.5MG/Ipratrop 0.5MG [Duoneb (A & A)] Med 08/24/19 04:51 Discontinued 3 ml INH NOW ONE CefTRIAXONE [Rocephin] 1 gm Med 08/24/19 06:35 Active 0.9% Sodium Chloride Inj [Ns] 50 ml IV NOW Magnesium Sulfate 2 gm/S.w.i. Med 08/24/19 04:52 Discontinued 2 gm in 50 ml IV NOW Methylprednisolone Sod Succ [Solu-Medrol] Med 08/24/19 04:52 Discontinued 125 mg IV NOW ONE Aerosol Treatments Routine Oth 08/24/19 04:51 Completed Aerosol Treatments Stat Oth 08/24/19 04:51 Completed Oxygen Device Stat Oth 08/24/19 04:54 Active EKG [EKG] Stat Ther 08/24/19 04:53 Ordered Result Diagrams: 08/24/19 05:06 08/24/19 04:54 - REASSESSMENT Reassessment #1 Time Reassessed: 06:25 Status: unchanged Reassessment Comment: continues to wheeze - EKG 1 Time of EKG reading by physician:: 04:43 EKG Read and Signed by:: Bassam Monreal Rate: 67 Rhythm: NSR [place]: normal MI Interval: normal ST Wave: normal Comments: no STEMI - XRAY 1 XRAY Study: Chest XRAY Interpretation: NAD - CONSULTS/PCP/HOSPITALIST Notification #1 *Consult/PCP/Hospitalist*: Dr. Barnard, hospitalist Time Discussed: 06:33 Consult Disposition: Admit Departure - Departure Date of Disposition Decision: 08/24/19 Time of Disposition Decision: 06:33 DIAGNOSIS: COPD exacerbation Disposition: ADMITTED INPATIENT 09 Certified Medical Emergency: Emergent Condition: Stable Referrals and Follow-Ups: Andi Nunn MD [Primary Care Provider] - - Critical Care Note This patient required my direct & personal management of CC.: No Attestation - Physician/ VERONICA Attestation Patient care was provided by Advanced Practice Provider:: No The physician spent face to face time with patient:: Yes Advanced Practice Provider documentation review:: Supervising physician onsite and consulted in the evaluation and care of this patient. The physician did have a face to face encounter with the patient.
[2019-08-24 05:20] LABS: BASO# 0.05 X1000 (0.0-0.2); BASO% 0.8 % (0.0-0.8); EOS% 3.3 % (0.0-10.0); HEMATOCRIT 35.4 % (42.0-52.0); HEMOGLOBIN 11.4 g/dL (14.0-18.0); LYMPH# 1.38 X1000 (1.2-3.4); LYMPH% 22.8 % (20.5-51.1); MCH 36.7 PG (27-31); MCHC 32.2 g/dL (33-37); MCV 113.8 FL (81-99); MONO# 1.01 X1000 (0.11-0.59); MONO% 16.7 % (1.7-9.3); MPV 9.8 FL (7.4-10.4); NEUT# 3.42 X1000 (1.4-6.5); NEUT% 56.4 % (42.2-75.2); PLT 286 X1000 (130-400); RBC 3.11 XMIL (4.7-6.1); RDW 16.6 % (11.5-14.5); WBC 6.06 X1000 (4.8-10.8)
[2019-08-24 05:24] LABS: ALLEN TEST YES; BE 3.9 mmoll (-3.0-3.0); BLOOD TYPE ARTERIAL; HCO3-(ACT) 27.9 mmoll (20.0-26.0); METHB 0.1 % (0.0-1.5); O2(CT) 14.5 mL/dL (15.0-23.0); O2HB 92.5 % (95.0-99.0); PCO2(98.6) 46 mmHg (35-45); PO2(98.6) 77 mmHg (60-100); SAMPLE BLOOD; SAO2 98.7 % (95.0-100.0); THB 11.1 g/dL (11.5-17.4); pH(98.6) 7.41 (7.35-7.45)
[2019-08-24 05:25] LABS: MODALITY CANNULA
[2019-08-24 05:43] LABS: ALB/GLOB RATIO 1.7; CALCIUM 9.1 mg/dL (8.8-10.2); CREATININE 1.4 mg/dL (0.7-1.2); POTASSIUM 4.7 mmol/L (3.5-5.1); TOTAL BILIRUBIN 0.37 mg/dL (0.20-1.00); TOTAL PROTEIN 6.4 g/dL (6.3-8.3)
[2019-08-24] MEDS ORDERED: ROCEPHIN 1 GM in NS 50 ML IV ONE (06:35)
--- NOTE | 2019-08-24 07:32 | Diag Imaging Result Doc PS360 ---
EXAM: CHEST-PORTABLE HISTORY: sob TECHNIQUE: Single view COMPARISON: 01/22/2017 FINDINGS: The lungs are well expanded. The heart is mildly prominent. Mild central vascular distention. No consolidation. Questionable small left effusion. IMPRESSION: Cardiomegaly with mild vascular prominence. Follow-up PA and lateral recommended. Electronically signed by Tio Dasilva 08/24/2019 7:30 AM
[2019-08-24] MEDS ORDERED: ZOFRAN IV PRN (07:41)
[2019-08-24] MEDS ORDERED: TYLENOL PO PRN (07:41)
[2019-08-24] MEDS: NEURONTIN PO SCH ×3 (09:00→21:58)
[2019-08-24] MEDS: LOTREL 5/10 MG PO SCH (09:19)
[2019-08-24] MEDS: NORCO-10 PO PRN ×3 (09:20→21:58)
[2019-08-24] MEDS: LOVENOX SUBQ SCH (09:21)
[2019-08-24] MEDS: EFFEXOR XR PO SCH (09:21)
[2019-08-24] MEDS: XANAX PO PRN (09:53)
[2019-08-24] MEDS: NICODERM PATCH TD SCH ×2 (10:15→15:31)
[2019-08-24] MEDS: DUONEB (A & A) INH SCH ×4 (12:57→23:36)
--- NOTE | 2019-08-24 13:25 | HISTORY AND PHYSICAL ---
PRIMARY CARE PROVIDER: Dr. Nunn. CHIEF COMPLAINT: Shortness of breath. HISTORY OF PRESENT ILLNESS: Mr. Reji Tony is a 73-year-old male with a history of COPD, supposed to be on home oxygen, but has been without it for at least 6 weeks or more. States for the last 3 days he has developed shortness of breath. His phlegm has become water and he has had headache with chills. Denies any colors in the phlegm. He presented here with a normal pH, some mild elevation in CO2, and some mild hypoxia, so we will admit him and treat him for COPD exacerbation. No pneumonia on the chest x-ray. PAST MEDICAL HISTORY: 1. COPD on home oxygen. He has been out for at least 6 weeks or more. 2. Hypertension. 3. Diabetes mellitus type 2. 4. Anxiety. 5. Depression. 6. Chronic back pain. SURGICAL HISTORY: 1. Lumbar surgery x3. 2. Left rotator cuff repair. 3. Right hip replacement. 4. Right femur fracture repair. 5. Left elbow surgery. 6. Right neck Lamb's tumor removed. 7. Bilateral knee scoped. SOCIAL HISTORY: Over 1 pack per day since age of 14. No alcohol. No illicit drug use. He retired in the year 1999. , 4 kids, 11 grandkids and 5 great grandkids. FAMILY HISTORY: Mother at 96 with dementia. Father by suicide, gunshot wound. ALLERGIES: No known drug allergies. HOME MEDICATIONS: 1. Trazodone 150 mg p.o. nightly. 2. Venlafaxine 75 mg p.o. nightly and then 150 mg p.o. daily. 3. Neurontin 600 mg p.o. t.i.d. 4. Metformin 500 mg p.o. twice daily. 5. Lotrel 1 tablet p.o. daily. 6. [place] 10 four times daily. 7. Nebulizers. 8. DuoNeb every 6 hours as needed. REVIEW OF SYSTEMS: Fourteen-point review of systems are complete and all were negative except for those mentioned above in the HPI. PHYSICAL EXAMINATION: VITAL SIGNS: Temperature 98.4 degrees, heart rate 69, respiratory rate 20, blood pressure 142/68, and O2 saturation 94% on 2 liters nasal cannula. GENERAL: Mr. Reji Tony is a 73-year-old male. He is in no acute distress. He is slightly anxious, but he is able to answer some questions appropriately. HEENT: Atraumatic, normocephalic. Pupils equal, round, reactive to light. Extraocular movements intact. Mucous membranes are dry. NECK: Trachea midline. CARDIOVASCULAR: S1, S2. Regular rate and rhythm. No rubs, gallops, murmurs. No lower extremity edema. There are +2 dorsalis and radial pulses. Negative JVD or carotid bruits. PULMONARY: Clear to auscultation, bilateral breath sounds. No accessory muscle use or work of breathing noted. Tolerating 2 liters nasal cannula. GASTROINTESTINAL: Soft, nontender, nondistended. Positive bowel sounds x4. EXTREMITIES: Moves all extremities equally. Full range of motion. NEUROLOGIC: A and O x3. Follows commands. Sensory is intact. SKIN: Warm, dry, intact. LABORATORY DATA: White blood cells 6000, hemoglobin 11, hematocrit 35, platelet count 286,000. ABGs on 2 liters nasal cannula, pH 7.41, pCO2 of 46, PO2 of 77, bicarbonate 27, base excess 3.9, saturation 92%, carboxyhemoglobin 6.2, lactate 0.6. Sodium 141, potassium 4.7, BUN 22, creatinine is 1.4, glucose 114, calcium 9.1, magnesium 2.1 bilirubin 0.37, AST 11, ALT 8, CK 55, troponin less than 0.01. ProBNP is 828. Albumin is 4. IMAGING: Chest x-ray, cardiomegaly with mild vascular prominence. ASSESSMENT AND PLAN: 1. Shortness of breath with chronic obstructive pulmonary disease exacerbation. Intravenous steroids, nebulizers, antibiotic coverage, pulmonary toilet. 2. Shortness of breath. Mild elevation in the proBNP. We are going to rule out for congestive heart failure. He actually does have trace lower extremity edema, so we will get an echocardiogram. 3. Tobacco abuse. Cessation discussed. Nicotine patch ordered. 4. Diabetes mellitus type 2. We will do pattern blood glucoses and sliding scale insulin. 5. Hypertension. Continue home medications. 6. Anxiety, depression. Xanax ordered. 7. Chronic back pain. The patient's [place] is ordered. 8. Deep venous thrombosis prophylaxis. Lovenox. Dictated by MONCHO Mccurdy for Calvin Albrecht MD Addendum: Patient seen and examined by myself. Agree with MONCHO note. It reflects my assessment and plan. Patient is being admitted to hospital for COPD exacerbation so will start Duoneb q4hrs, IV steroids and IV antibiotics. Will monitor patient closely. cc: MONCHO Mccurdy MD MTDD
[2019-08-24] MEDS: SOLU-MEDROL IV SCH ×2 (14:57→21:58)
[2019-08-24] MEDS: HUMULIN R SUBQ SCH ×3 (14:59→22:02)
--- NOTE | 2019-08-24 18:30 | ECHO REPORT ---
ORDER DATE: 08/24/2019 INDICATION: Shortness of breath. FINDINGS: 1. The right atrium appears normal in size. 2. Trace tricuspid regurgitation. RV systolic pressure of 37. 3. Normal RV size and systolic function. 4. No significant pulmonic insufficiency. 5. Mild left atrial enlargement with a dimension of 4.1 cm. 6. No mitral valve prolapse. Mild mitral regurgitation. 7. Normal LV size. End-diastolic dimension of 4.2 cm. No clear evidence of left ventricular hypertrophy with interventricular septal wall thickness of 0.9 cm. Very poor resolution of the endocardial borders. Suggested ejection fraction is greater than or equal to 55%. 8. The aortic valve is not well seen. The mean gradient across the valve is 15 with a peak of 34mmHg suggesting possible mild aortic stenosis. The overall Doppler evaluation of the valve is poor. There is no insufficiency seen. 9. Aorta appears normal in visualized segments. 10. No pericardial effusion seen. cc: MD Zahra Vargas CRNP MTDD
[2019-08-24] MEDS: PULMICORT INH SCH (19:45)
[2019-08-24] MEDS ORDERED: DESYREL PO SCH ×2 (21:00→22:08)
[2019-08-24] MEDS ORDERED: EFFEXOR XR PO SCH (21:00)
[2019-08-25] MEDS: DUONEB (A & A) INH SCH ×3 (04:01→11:18)
[2019-08-25 05:21] LABS: BASO# 0.01 X1000 (0.0-0.2); BASO% 0.2 % (0.0-0.8); HEMATOCRIT 33.2 % (42.0-52.0); HEMOGLOBIN 10.2 g/dL (14.0-18.0); IMM GRAN# 0.03 X1000 (0.0-0.04); IMM GRAN% 0.5 % (0.0-0.5); LYMPH# 0.69 X1000 (1.2-3.4); LYMPH% 10.4 % (20.5-51.1); MCH 34.8 PG (27-31); MCHC 30.7 g/dL (33-37); MCV 113.3 FL (81-99); MONO# 0.26 X1000 (0.11-0.59); MONO% 3.9 % (1.7-9.3); MPV 9.9 FL (7.4-10.4); NEUT# 5.62 X1000 (1.4-6.5); PLT 319 X1000 (130-400); RBC 2.93 XMIL (4.7-6.1); RDW 16.3 % (11.5-14.5); WBC 6.61 X1000 (4.8-10.8)
[2019-08-25 05:41] LABS: ALB/GLOB RATIO 1.4; ALBUMIN 3.6 g/dL (3.5-5.0); CALCIUM 8.8 mg/dL (8.8-10.2); CREATININE 1.2 mg/dL (0.7-1.2); TOTAL BILIRUBIN 0.22 mg/dL (0.20-1.00); TOTAL PROTEIN 6.1 g/dL (6.3-8.3)
[2019-08-25] MEDS: SOLU-MEDROL IV SCH ×2 (05:48→14:38)
[2019-08-25] MEDS: NORCO-10 PO PRN (05:48)
[2019-08-25] MEDS: HUMULIN R SUBQ SCH ×2 (06:17→11:29)
[2019-08-25] MEDS ORDERED: PROTONIX PO SCH (07:00)
[2019-08-25] MEDS: PULMICORT INH SCH (07:38)
[2019-08-25] MEDS ORDERED: ROCEPHIN 1 GM in NS 50 ML IV SCH (08:00)
[2019-08-25] MEDS: NEURONTIN PO SCH ×2 (08:43→14:37)
[2019-08-25] MEDS: LOVENOX SUBQ SCH (08:43)
[2019-08-25] MEDS: NICODERM PATCH TD SCH (08:43)
[2019-08-25] MEDS: EFFEXOR XR PO SCH (08:56)
[2019-08-25] MEDS: XANAX PO PRN (09:05)
[2019-08-25] MEDS: LOTREL 5/10 MG PO SCH (09:05)
[2019-08-25 12:08] VITALS: BP 141/52
--- NOTE | 2019-08-25 14:07 | DISCHARGE SUMMARY ---
ADMISSION DATE: 08/24/2019 DISCHARGE DATE: 08/25/2019 PRIMARY CARE PROVIDER: Dr. Nunn. PERTINENT PROCEDURE: Echocardiogram showed an EF of 55%. DISCHARGE DIAGNOSES: 1. Shortness of breath with chronic obstructive pulmonary disease exacerbation. The patient was placed on steroids, nebulizers, antibiotic coverage, and aggressive pulmonary toilet, and will be discharged on azithromycin, DuoNebs, Medrol Dosepak. 2. Tobacco use cessation was discussed. Nicotine patch was ordered, as well as a prescription for nicotine patch. 3. Diabetes mellitus type 2. Patient will continue on home regimen and diabetic diet. 4. Hypertension. Continue home regimen. 5. Anxiety and depression. Continue home medications. 6. Chronic back pain. Continue patient's home [place]. HOSPITAL COURSE: Briefly, Mr. Tony is a 73-year-old male with history of COPD, supposed to be on home O2, but has been without it for more than 6 weeks. Over the past 3 days, he developed shortness of breath. ABG in the ED showed a normal pH with some mild elevation in his CO2, some mild hypoxia. He was admitted for mild exacerbation of his COPD. No pneumonia on his chest x-ray. They did get an echocardiogram for mild elevation in his proBNP as well that shows a normal EF. The patient will be discharged back home today. VITAL SIGNS: At time of discharge, temperature is 98 degrees, heart rate 80, respirations 14, blood pressure 141/52, O2 is 100%. DISCHARGE DIET: Healthy heart. DISCHARGE MEDICATIONS: 1. Trazodone 150 mg p.o. at bedtime. 2. Effexor ER 150 mg p.o. daily. 3. Effexor ER 75 mg p.o. at bedtime. 4. Gabapentin 600 mg p.o. t.i.d. 5. Glucophage 500 mg p.o. b.i.d. 6. Lotrel 10 to 20 mg capsule 1 each p.o. daily. 7. [place] 10/325 one each p.o. 4 times a day. 8. Azithromycin 500 mg p.o. daily for 5 days. 9. DuoNebs 3 mL inhaled q. 6 hours p.r.n. 10. Medrol Dosepak 4 mg p.o. as directed x1 package. 11. NicoDerm patch 21 mg TD daily. FOLLOWUP: Mr. Tony is being discharged back home with self care. He is to take all medications as prescribed. He can return to the ED or call 911 for any worsening of symptoms. He is to follow up with his primary care provider in the next 1 to 2 weeks. He can return to the ED or call 911 for any worsening of symptoms. Dictated by MONCHO Gibson for Calvin Albrecht MD Addendum: Patient seen and examined by myself. Agree with MONCHO note. It reflects my assessment and plan. Patient is being released in stable condition. Will be seen by PCP in a week. cc: MD Andi Adair MD MTDNell
[2019-08-26] MEDS ORDERED: EFFEXOR XR PO SCH (09:00)
--- NOTE | 2019-08-27 10:05 | EKG Report ---
Test Performed on : 08/24/2019 04:42:27 AM Test Reason : Canc in error Blood Pressure : / mmHG Vent. Rate : 067 BPM Atrial Rate : 067 BPM P-R Int : 176 ms QRS Dur : 090 ms QT Int : 382 ms P-R-T Axes : 066 012 038 degrees QTc Int : 403 ms Normal sinus rhythm. Normal ECG When compared with ECG of 21-JAN-2017 05:54, No significant change was found Unconfirmed Result
== END 2019-08-25 15:18 | disposition home or self-care (01) | DRG 191 ==
LOC: ED 04:11 → EDIPHOLD 07:56 → 1N 14:00
PROVIDERS: ATTEND Internal Medicine